=== PATIENT | female | born 1990 | race Two or more races ===

== ENCOUNTER 2017-01-27 07:53 | Emergency (ER) | payer MEDICAID ==
[~2017-01-27] VITALS: Ht 157.5 cm; Wt 54.0 kg
[2017-01-27] MEDS ORDERED: ACETAMINOPHEN 325MG TABLET PO STA (08:32)
[2017-01-27] MEDS ORDERED: FAMOTIDINE 20MG TABLET PO ONE (08:45)
[2017-01-27 08:47] LABS: BASOPHILS % 0.2 % (0.0-2.0); EOSINOPHILS % 0.4 % (0.0-5.0); HEMATOCRIT. 37.7 % (36.0-48.0); HEMOGLOBIN. 12.1 g/dL (12.0-16.0); LYMPHOCYTES % 28.5 % (20.0-50.0); MEAN CORPUSCULAR HEMOGLOBIN 26.9 pg (28.0-32.0); MEAN CORPUSCULAR VOLUME 84.2 fL (81.0-99.0); MEAN PLATELET VOLUME 8.1 fl (7.4-10.4); MONOCYTES % 6.8 % (2.0-8.0); NEUTROPHILS % 64.1 % (40.0-76.0); PLATELET 248 x1000/uL (130-400); RED BLOOD CELL COUNT 4.48 mill/uL (4.2-5.4); RED CELL DISTRIBUTION WIDTH 13.8 % (11.6-14.6)
[2017-01-27 08:47] LABS: CLARITY URINE CLOUDY (CLEAR); COLOR URINE YELLOW (YELLOW); GLUCOSE URINE NEGATIVE (NEGATIVE); KETONES URINE TRACE (NEGATIVE); LEUKOCYTE ESTERASE URINE 1+ (NEGATIVE); NITRITE URINE NEGATIVE (NEGATIVE); OCCULT BLOOD URINE 2+ (NEGATIVE); PROTEIN URINE NEGATIVE (NEGATIVE); SPECIFIC GRAVITY URINE 1.028 (1.005-1.030)
[2017-01-27 08:58] LABS: CHLORIDE 107 mEq/L (98-107)
[2017-01-27 09:07] LABS: CARBON DIOXIDE 27 mEq/L (21-32)
[2017-01-27 10:53] VITALS: BP 107/69
== END 2017-01-27 11:03 | disposition home or self-care (01) ==
LOC: ER 08:08
DX: N39.0 Urinary tract infection, site not specified (principal); R10.13 Epigastric pain
CPT/HCPCS: 36415; 76705; 80053; 81001; 81025; 85025; 99285